=== PATIENT | female | born 1950 | race Caucasian/White ===

== ENCOUNTER 2019-02-19 10:07 | Outpatient (REF) | payer MEDICARE, SELFPAY ==
[2019-02-19 22:05] LABS: Hemoglobin A1C 6.4 % (4.5-6.2)
[2019-02-19 22:09] LABS: ALT 20 U/L (12-78); AST 18 U/L (15-37); Alkaline Phosphatase 57 U/L (46-116); Anion Gap 10.1 mmol/L (3-11); BUN 14 mg/dL (7-18); Bilirubin, Total 1.1 mg/dL (0.2-1.0); CO2 27.9 mmol/L (21.0-32.0); CREATININE 0.85 mg/dL (0.55-1.02); Calcium 9.1 mg/dL (8.5-10.1); Chloride 102 mmol/L (98-107); Cholesterol 161 mg/dL (50-200); Glucose 105 mg/dL (70-100); HDL Cholesterol 61 mg/dL (40-60); LDL CHOLESTEROL 85 mg/dL (<100); Sodium 140 mmol/L (136-145); Total Protein 7.1 g/dL (6.4-8.2); Triglyceride 92 mg/dL (30-150)
== END 2019-02-19 10:27 ==
LOC: NCHCN 10:07
PROVIDERS: PCP Family Medicine; Visit Provider Physician Assistant Medical
DX: E78.5 Hyperlipidemia, unspecified (principal); E11.9 Type 2 diabetes mellitus without complications
CPT/HCPCS: 80053; 80061; 83721; 83036

== ENCOUNTER 2019-09-24 08:46 | Outpatient (CLI) | payer MEDICARE, SELFPAY | END 2019-09-24 09:06 | PROVIDERS: PCP Family Medicine; Visit Provider Family Medicine | DX: E11.9 Type 2 diabetes mellitus without complications (principal) | CPT/HCPCS: 36415; 83036 ==

== ENCOUNTER 2022-10-05 09:35 | Outpatient (CLI) | payer MEDICARE, SELFPAY ==
[2022-10-05 13:21] LABS: Anion Gap 9.5 mmol/L (3-11); BUN 11 mg/dL (7-18); CO2 28.5 mmol/L (21.0-32.0); Calcium 9.2 mg/dL (8.5-10.1); Calculated LDL 67 mg/dL (<100); Chloride 103 mmol/L (98-107); Cholesterol 151 mg/dL (<200); Estimated GFR 59.86 (mL/min/1.73m2); Glucose 113 mg/dL (74-106); HDL Cholesterol 53 mg/dL (40-60); Sodium 141 mmol/L (136-145); Triglyceride 157 mg/dL (<150); Vitamin B12 231 pg/mL (193-986)
== END 2022-10-05 09:36 | disposition home or self-care (01) ==
LOC: LOS 09:36
PROVIDERS: PCP Family Medicine; Visit Provider Family Medicine
DX: D64.9 Anemia, unspecified (principal); E87.1 Hypo-osmolality and hyponatremia; I10 Essential (primary) hypertension; E11.9 Type 2 diabetes mellitus without complications; E78.5 Hyperlipidemia, unspecified; Z79.899 Other long term (current) drug therapy
CPT/HCPCS: 36415; 80048; 80061; 82607

== ENCOUNTER 2023-11-13 03:19 | Outpatient (CLI) | payer MEDICARE, SELFPAY ==
[2023-11-13 09:43] LABS: Estimated GFR 59.49 (mL/min/1.73m2); Potassium 4.2 mmol/L (3.5-5.1)
[2023-11-13 11:22] LABS: Hemoglobin A1C 5.6 % (<5.7)
== END 2023-11-13 03:20 | disposition home or self-care (01) ==
PROVIDERS: PCP Family Medicine; Visit Provider Family Medicine
DX: I10 Essential (primary) hypertension (principal); E11.51 Type 2 diabetes mellitus with diabetic peripheral angiopathy without gangrene
CPT/HCPCS: 36415; 82565; 83036; 84132

== ENCOUNTER 2024-04-16 09:59 | Emergency (ER) | payer MEDICARE, SELFPAY, MEDICAID ==
[2024-04-16 10:03] VITALS: BP 139/88; PULSE 77; RESP 16; TEMP 36.6; O2SAT 96
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
== END 2024-04-16 10:46 | disposition home or self-care (01) ==
PROVIDERS: Emergency Provider Nurse Practitioner Family; PCP Family Medicine
DX: S10.86XA Insect bite of other specified part of neck, initial encounter (principal); W57.XXXA Bitten or stung by nonvenomous insect and other nonvenomous arthropods, initial encounter
CPT/HCPCS: 99283

== ENCOUNTER 2025-08-11 00:31 | Outpatient (CLI) | payer MEDICARE, MEDICAID, SELFPAY ==
[2025-08-11 15:06] LABS: Estimated GFR 52.73 (mL/min/1.73m2); Potassium 3.6 mmol/L (3.5-5.1)
[2025-08-11 16:07] LABS: Hemoglobin A1C 5.6 % (<5.7)
== END 2025-08-11 00:32 | disposition home or self-care (01) ==
LOC: LOS 00:31
PROVIDERS: PCP Family Medicine; Visit Provider Family Medicine
DX: R73.9 Hyperglycemia, unspecified (principal); I10 Essential (primary) hypertension
CPT/HCPCS: 36415; 82565; 83036; 84132